=== PATIENT | male | born 1975 | race Caucasian/White ===

== ENCOUNTER 2023-10-09 18:19 | Emergency (ER) | payer MEDICAID, SELFPAY ==
[2023-10-09] VITALS (8 sets, daily range): BP systolic 161–225; BP diastolic 89–132; PULSE 64–93; RESP 16; TEMP 36.6; O2SAT 96–100; BMI 28.7
--- NOTE | 2023-10-09 18:56 | ED.GENADULT ---
HPI - General Adult General Chief complaint: Nausea/Vomiting Stated complaint: Detoxing off meth Time Seen by Provider: 10/09/23 18:50 History of Present Illness HPI narrative: This 47-year-old male comes in with his father reporting persistent vomiting and generalized aches and pains. He has been abusing methamphetamines and fentanyl and thinks that he is in withdrawal. His last use of fentanyl was yesterday. He arrives here with normal vital signs except has some elevation of his blood pressure. Related Data Home Medications Medication Instructions Recorded Confirmed No Known Home Medications 10/09/23 10/09/23 Allergies Allergy/AdvReac Type Severity Reaction Status Date / Time codeine AdvReac Unknown Vomiting Verified 10/09/23 18:29 Review of Systems Status of ROS: Reports: 10 or more systems reviewed and unremarkable except as noted in History and below Narrative: Constitutional: No fevers. Generalized pain. Eyes: No discharge. No vision changes. HENT: No congestion, no sore throat, no ear pain. Cardiovascular: No chest pain, no palpitations. Respiratory: No shortness of breath, no wheezes, no cough. Gastrointestinal: No abdominal pain, no diarrhea. Persistent nausea and vomiting. Genitourinary: No dysuria, no hematuria. Musculoskeletal: Normal range of motion. Skin: No rashes, no pruritis. Neurological: No dizziness, weakness, sensory change, speech change. Endo/Heme/Allergies: No bruising or bleeding. No polydipsia. Pysch: no suicidality, no anxiety, no insomnia. All other systems reviewed and are negative. PFSH PFS Social History Smoking Status: Unknown if ever smoked Non-prescribed substance use: opiods/painkillers Non-prescribed substance use details: fentanyl Exam Narrative: Exam Narrative: Constitutional: Well-developed, well-nourished. HEENT: Normocephalic, atraumatic. Neck: Normal range of motion. Nontender. Supple. Heart: Regular. No murmurs. Normal rate. Intact distal pulses. Lungs: Clear to auscultation. No chest discomfort. No wheezes, rhonchi, or rales. Abdomen: Normal bowel sounds. Nontender. No rebound tenderness. Genitalia: Deferred. Back: No midline tenderness. Normal range of motion. Extremities: Normal range of motion. No injury. Skin: Intact. No rash. Warm. No erythema or pallor. Neurologic: No altered sensation. No weakness. Alert and oriented. Nursing notes and vitals signs are reviewed. Const: Vital Signs, click to edit/add: Vital Signs - 24 hr 10/09/23 18:30 10/09/23 19:18 10/09/23 19:22 Temperature 97.8 F Pulse Rate 65 Pulse Rate [Pulse Oximeter] 93 Respiratory Rate 16 Blood Pressure 225/116 H Blood Pressure [Ri ght Upper Arm] 177/128 H Pulse Oximetry 100 97 96 Oxygen Delivery Me thod Room Air 10/09/23 19:23 10/09/23 19:30 10/09/23 19:32 Temperature Pulse Rate 64 65 66 Pulse Rate [Pulse Oximeter] Respiratory Rate Blood Pressure 171/132 H Blood Pressure [Ri ght Upper Arm] Pulse Oximetry 96 97 98 Oxygen Delivery Me thod 10/09/23 19:33 Temperature Pulse Rate 65 Pulse Rate [Pulse Oximeter] Respiratory Rate Blood Pressure Blood Pressure [Ri ght Upper Arm] Pulse Oximetry 97 Oxygen Delivery Me thod Course Vital Signs Vital signs: Initial Vital Signs Temperature 97.8 F 10/09/23 18:30 Temperature Source Temporal Artery Scan 10/09/23 18:30 Pulse Rate 93 10/09/23 18:30 Pulse Rhythm Regular 10/09/23 18:30 Respiratory Rate 16 10/09/23 18:30 Blood Pressure 177/128 H 10/09/23 18:30 Blood Pressure Mean 144 H 10/09/23 18:30 Blood Pressure Position Sitting 10/09/23 18:30 Pulse Oximetry 100 10/09/23 18:30 Oxygen Delivery Method Room Air 10/09/23 18:30 Vital Signs Temperature 97.8 F 10/09/23 18:30 Pulse Rate 93 10/09/23 18:30 Respiratory Rate 16 10/09/23 18:30 Blood Pressure 177/128 H 10/09/23 18:30 Pulse Oximetry 100 10/09/23 18:30 Oxygen Delivery Method Room Air 10/09/23 18:30 Temperature 97.8 F 10/09/23 18:30 Pulse Rate 65 10/09/23 19:33 Respiratory Rate 16 10/09/23 18:30 Blood Pressure 171/132 H 10/09/23 19:32 Pulse Oximetry 97 10/09/23 19:33 Oxygen Delivery Method Room Air 10/09/23 18:30 Medications Administered Medications: Discontinued Medications Generic Name Dose Route Start Last Admin Trade Name Agus PRN Reason Stop Dose Admin Sodium Chloride 1,000 mls @ 1,000 mls/hr 10/09/23 19:00 10/09/23 20:26 0.9 % Sodium Chloride 1000 Ml IV 10/09/23 19:59 Infused .Q1H NAHOMI Infusion Lorazepam 2 mg 10/09/23 18:55 10/09/23 19:19 Lorazepam 2 Mg/Ml Inj IV 10/09/23 18:56 2 mg ONCE ONE Administration Ondansetron HCl 4 mg 10/09/23 18:55 10/09/23 19:19 Ondansetron 2 Mg/Ml Inj IVP 10/09/23 18:56 4 mg ONCE ONE Administration Medical Decision Making MDM Narrative Medical decision making narrative: This patient comes in with persistent vomiting related to withdrawal symptoms from methamphetamines and fentanyl. He arrives with normal vital signs but does have increased blood pressure. An IV was established where he did receive a L of normal saline, Zofran 4 mg, and Ativan 2 mg. This brought relief to his vomiting and some of his withdrawal symptoms. He does continue to have some nausea symptoms so a 2nd dose of Zofran was administered. This patient is interested in detox and arrangements are being made for transfer. This is occurs at the end of my shift so care for this patient will be handed to the next ER physician. Lab Data Labs: Lab Results 10/09/23 10/09/23 Range/Units 18:37 19:10 Salicylates < 1.0 L (1.0-10) mg/dL Urine Opiates Screen Negative (Negative) Ur Oxycodone Screen Negative (Negative) Urine Methadone Screen Negative (Negative) Acetaminophen < 10.0 L (10.0-30.0) ug/mL Ur Barbiturates Screen Negative (Negative) U Tricyclic Antidepress Negative (Negative) Ur Phencyclidine Scrn Negative (Negative) Ur Amphetamines Screen Negative (Negative) U Methamphetamines Scrn Negative (Negative) U Benzodiazepines Scrn Negative (Negative) Urine Cocaine Screen Negative (Negative) U Marijuana (THC) Screen POSITIVE A (Negative) Ur Drug Screen Comment See Note Ethyl Alcohol < 0.01 L (0.01-0.03) % SARS-CoV-2 (PCR) Negative SARS-CoV-2 (Negative) Influenza Type A (PCR) Negative PCR FLU A (Negative) Influenza Type B (PCR) Negative PCR FLU B (Negative) RSV (PCR) Negative PCR RSV (Negative) Discharge Plan Discharge Clinical Impression: Opiate withdrawal, Methamphetamine abuse Prescriptions: No Action No Known Home Medications Follow Up/Referrals: Provider,Not a Local [Primary Care Provider] -
[2023-10-09 19:19] LABS: PCR FLU A Negative PCR FLU A (Negative); PCR FLU B Negative PCR FLU B (Negative); PCR RSV Negative PCR RSV (Negative); SARS PCR* Negative SARS-CoV-2 (Negative)
[2023-10-09] MEDS: 0.9 % SODIUM CHLORIDE 1000 ml 1,000 ML IV (19:19)
[2023-10-09] MEDS: ONDANSETRON 2 MG/ML inj 4 MG IVP ×2 (19:19→21:10)
[2023-10-09] MEDS: LORazepam 2 MG/ML inj IV (19:19)
--- NOTE | 2023-10-09 19:27 | ED.NURSE ---
Last BP check 225/116. Provider updated.
--- NOTE | 2023-10-09 19:43 | ED.NURSE ---
Patient states that he is feeling a little better, no more nausea noted. He and his father would like to pursue detox treatment from here. Nursing to call around and see about bed availability.
[2023-10-09 20:19] LABS: Acetaminophen* < 10.0 ug/mL (10.0-30.0); Amphetamine Screen Urine Negative (Negative); Barbiturate Screen Urine Negative (Negative); Benzodiazepines Screen Urine Negative (Negative); Cannabinoid Screen Urine POSITIVE (Negative); Cocaine Screen Urine Negative (Negative); Ethanol* < 0.01 % (0.01-0.03); Methadone Screen Urine Negative (Negative); Methamphetamines Screen Urine Negative (Negative); Opiate Screen Urine Negative (Negative); Oxycodone Screen Urine Negative (Negative); Phencyclidine Screen Urine Negative (Negative); Salicylate* < 1.0 mg/dL (1.0-10); Tricyclic Antidepressant Urine Negative (Negative)
[2023-10-09] MEDS: LORazepam 2 MG/ML inj 1 MG IVP (21:36)
--- NOTE | 2023-10-09 21:46 | ED.NURSE ---
Patient's MD note and labwork results faxed to [facility] at [phone]. Patient going via private vehicle with his father driving him. Patient voluntary at this time. Report given to RN. Notified patient and father that he is expected there and to hit the buzzer at the entrance. Address is [address] [place] [address].
== END 2023-10-09 21:48 | disposition other institution (70) ==
PROVIDERS: Emergency Provider Emergency Medicine Emergency Medical Services
DX: F15.23 Other stimulant dependence with withdrawal (principal)
CPT/HCPCS: 36415; 80143; 80179; 80306; 82077; 87631; 96361; 96374; 96375; 96376; 99284; 99285; J2060; J2405; J7030